=== PATIENT | female | born 1955 | race Caucasian/White ===

== ENCOUNTER 2019-11-01 13:59 | Inpatient (IN) | payer MEDICARE, OTHER ==
[~2019-11-01] VITALS: Ht 152.4 cm; Wt 78.1 kg
--- NOTE | 2019-11-01 14:29 | Diagnostic Imaging Report ---
EXAMINATION: Head CT HISTORY: Confusion, evaluate for acute stroke COMPARISON: None. TECHNIQUE: Multidetector axial images were obtained without contrast from the foramen magnum to the vertex . The images were reconstructed using brain and bone algorithms. Thin section brain images were reformatted into coronal and sagittal planes. Image quality: Motion/streaking artifact limits the evaluation of the skull base and posterior cranial fossa. Dose modulation, iterative reconstruction, and/or weight based adjustment of the mA/kV was utilized to reduce the radiation dose to as low as reasonably achievable. FINDINGS: Parenchyma: 1. Few scattered matter hypodensities, most likely nonspecific unremarkable ischemic changes, a small likely chronic lacunar infarct in left subinsular region. 2. No mass or hemorrhage. No CT evidence of acute territorial vascular insult. Extra-axial spaces:No abnormal density. No extra-axial fluid collections Brain volume: Normal for age. Ventricles: No hydrocephalus or displacement. Arteries: Prominent calcified atherosclerotic changes in the left greater than right internal carotid arteries Dural sinuses: No abnormal density. Extra-axial spaces: No abnormal density. Foramen magnum: No mass, Chiari malformation, or basilar invagination. Sella: No obvious mass. Paranasal/mastoid sinuses: Imaged portions unremarkable. Skull/Scalp: No lytic or blastic lesions. No fractures. Small extra-axial calcification in the left or frontal convexity may represent a bony exostoses versus a tiny calcified meningioma, no associated mass effect or abnormal density in the underlying parenchyma. IMPRESSION: 1. No intracranial hemorrhage or acute cortical infarct. 2. Small hypodensity in the left subinsular region may represent an age indeterminate ischemic lacunar infarct. 3. Mild white matter chronic microvascular changes. Signed by: Dr. Kellen Faria M.D. on 11/01/2019 2:26 PM
[2019-11-01] MEDS ORDERED: NICARDIPINE 20MG/200ML PREMIX 200 ML ONE (14:45)
--- NOTE | 2019-11-01 14:46 | Diagnostic Imaging Report ---
Chest, 1 view, 11/01/2019. History: , Confusion. Comparison: None available. Findings: The cardiomediastinal silhouette and pulmonary vasculature are within normal limits for a portable exam. There is no focal consolidation or pleural effusion. Linear opacities are present in the right lung base. There are no acute osseous or soft tissue abnormalities. Impression: Right basilar atelectasis. Signed by: Kee Gomez on 11/01/2019 2:42 PM
[2019-11-01 14:49] LABS: BASOPHILS # (AUTO) 0.1 (0.0-0.1); BASOPHILS % 0.9 % (0.0-1.0); EOSINOPHILS # (AUTO) 0.3 (0.0-0.4); EOSINOPHILS % 4.8 % (0.0-6.0); HEMATOCRIT 40.5 % (34.2-44.1); HEMOGLOBIN 12.6 g/dL (12.0-16.0); LYMPHOCYTES # (AUTO) 2.1 (1.0-3.2); LYMPHOCYTES % 39.2 % (18.0-39.1); MEAN CORPUSCULAR HEMOGLOBIN 25.1 pg (28-32); MEAN CORPUSCULAR HGB CONC 31.1 g/dL (31-35); MEAN CORPUSCULAR VOLUME 80.7 fL (81-99); MONOCYTES # (AUTO) 0.6 (0.2-0.8); MONOCYTES % 11.2 % (4.4-11.3); NEUTROPHILS # (AUTO) 2.4 (2.1-6.9); NEUTROPHILS % 43.7 % (38.7-80.0); PLATELET COUNT 133 x10e3/uL (140-360); RED BLOOD COUNT 5.02 x10e6/uL (3.6-5.1); RED CELL DISTRIBUTION WIDTH 14.7 % (11.7-14.4)
[2019-11-01 14:56] LABS: BILIRUBIN,URINE NEGATIVE (NEGATIVE); CLARITY,URINE CLEAR (CLEAR); COLOR,URINE YELLOW (YELLOW); KETONES,URINE NEGATIVE (NEGATIVE); LEUKOCYTE ESTERASE ,URINE NEGATIVE (NEGATIVE); NITRITE,URINE NEGATIVE (NEGATIVE); PROTEIN,URINE DIPSTICK NEGATIVE (NEGATIVE); URINE UROBILINOGEN 0.2 mg/dL (0.2 - 1)
[2019-11-01 14:58] LABS: INR 0.9; PARTIAL THROMBOPLASTIN TIME 26.8 seconds (23.8-35.5); PROTHROMBIN TIME 12.6 seconds (11.9-14.5)
[2019-11-01] MEDS ORDERED: NICARDIPINE 20MG/200ML PREMIX 200 ML IV PRN (15:00)
[2019-11-01 15:02] LABS: AMPHETAMINES SCREEN,URINE NEGATIVE (NEGATIVE); BENZODIAZEPINES SCREEN,URINE POSITIVE (NEGATIVE); PHENCYCLIDINE SCREEN,URINE NEGATIVE (NEGATIVE)
[2019-11-01 15:11] LABS: ALANINE AMINOTRANSFERASE 34 IU/L (0-55); ALBUMIN/GLOBULIN RATIO 1.3 (0.8-2.0); ALKALINE PHOSPHATASE 71 IU/L (40-150); ANION GAP 13.8 mmol/L (8-16); BLOOD UREA NITROGEN 15 mg/dL (7-26); BUN/CREATININE RATIO 20 (6-25); CALCIUM 9.2 mg/dL (8.4-10.2); CARBON DIOXIDE 28 mmol/L (22-29); CHLORIDE 102 mmol/L (98-107); CREATINE KINASE 120 IU/L (29-168); CREATININE, SERUM 0.75 mg/dL (0.57-1.11); EST GLOMERULAR FILTRATION RATE > 60 ML/MIN (60-); GLUCOSE 101 mg/dL (74-118); POTASSIUM 3.8 mmol/L (3.5-5.1); SODIUM 140 mmol/L (136-145)
[2019-11-01] MEDS ORDERED: SODIUM CHLORIDE 0.9% 1000ML 1,000 ML IV STA ×2 (15:11)
[2019-11-01] MEDS ORDERED: ASPIRIN 325 MG TAB PO ONE (15:15)
[2019-11-01] MEDS ORDERED: ONDANSETRON HCL INJ 2MG/ML 2ML 2 MG/ML VIAL IV PRN (15:15)
[2019-11-01] MEDS ORDERED: FOLIC ACID 5 MG/ML VIAL IV ONE (15:15)
[2019-11-01] MEDS ORDERED: DEXTROSE 50% SYRINGE 50 ML IV PRN (15:15)
[2019-11-01 15:18] LABS: BACTERIA,URINE FEW /HPF; EPITHELIAL CELLS,URINE FEW /LPF
--- OUTSIDE RECORDS SUMMARY | 2019-11-01 15:30 | XMS REPORT ---
Author Author [facility] Address Unknown Phone Unavailable Care Team Providers Care Radiology Aide Name Role Phone DORETHA HAILE Unavailable Unavailable Problems This patient has no known problems. Allergies, Adverse Reactions, Alerts This patient has no known allergies or adverse reactions. Medications This patient has no known medications. Encounters Start Date/Time End Date/Time Encounter Type Admission Type Attending Clinicians Care Facility Care Department Encounter ID 2019-08-04 19:32:00 2019-08-04 17:41:00 Inpatient E N MED 7502 Results Test Description Test Time Test Comments Text Results Atomic Results Result Comments CHEST SINGLE (PORTABLE) 2019-11-01 14:42:00 [place] [id number] Patient Name: LILIAN KNOWLES MR #: [id number] : 1955 Age/Sex: 64/F Req #: [id number] Adm Physician: Ordered by: KEE MARTINEZ CORRECTIONAL OFFICER CAPTAIN Report #: [id number] Location: ER Room/Bed: Procedure: [id number] DX/CHEST SINGLE (PORTABLE) Exam Date: 11/01/19 Exam Time: 1412 REPORT STATUS: Signed Chest, 1 view, 11/01/2019. History: , Confusion. Comparison: None available. Findings: The cardiomediastinal silhouette and pulmonary vasculature are within normal limits for a portable exam. There is no focal consolidation or pleural effusion. Linear opacities are present in the right lung base. There are no acute osseous or soft tissue abnormalities. Impression: Right basilar atelectasis. Signed by: Kee Gomez on 11/01/2019 2:42 PM Dictated By: KEE GOMEZ MD 41 Transcribed By: TOMASA on 11/01/191441 COPY TO: KEE MARTINEZ CORRECTIONAL OFFICER CAPTAIN CT BRAIN WO 2019-11-01 14:19:00 [place] [id number] Patient Name: LILIAN KNOWLES MR #: [id number] : 1955 Age/Sex: 64/F Req #: [id number] Adm Physician: Ordered by: DORETHA HAILE MD, MD Report #: [id number] Location: ER Room/Bed: Procedure: [id number] CT/CT BRAIN WO Exam Date: 11/01/19 Exam Time: 1411 REPORT STATUS: Signed EXAMINATION: Head CT HISTORY: Confusion, evaluate for acute stroke COMPARISON: None. TECHNIQUE: Multidetector axial images were obtained without contrast from the foramen magnum to the vertex . The images were reconstructed using brain and bone algorithms. Thin section brain images were reformatted into coronal and sagittal planes. Image quality: Motion/streaking artifact limits the evaluation of the skull base and posterior cranial fossa. Dose modulation, iterative reconstruction, and/or weight based adjustment of the mA/kV was utilized to reduce the radiation dose to as low as reasonably achievable. FINDINGS: Parenchyma: 1. Few scattered matter hypodensities, most likely nonspecific unremarkable ischemic changes, a small likely chronic lacunar infarct in left subinsular region. 2. No mass or hemorrhage. No CT evidence of acute territorial vascular insult. Extra-axial spaces:No abnormal density. No extra-axial fluid collections Brain volume: Normal for age. Ventricles: No hydrocephalus or displacement. Arteries: Prominent calcified atherosclerotic changes in the left greater than right internal carotid arteries Dural sinuses: No abnormal density. Extra-axial spaces: No abnormal density. Foramen magnum: No mass, Chiari malformation, or basilar invagination. Sella: No obvious mass. Paranasal/mastoid sinuses: Imaged portions unremarkable. Skull/Scalp: No lytic or blastic lesions. No fractures. Small extra-axial calcification in the left or frontal convexity may represent a bony exostoses versus a tiny calcified meningioma, no associated mass effect or abnormal density in the underlying parenchyma. IMPRESSION: 1. No intracranial hemorrhage or acute cortical infarct. 2. Small hypodensity in the left subinsular region may represent an age indeterminate ischemic lacunar infarct. 3. Mild white matter chronic microvascular changes. Signed by: Dr. Jane Faria M.D. on 11/01/2019 2:26 PM Dictated By: JANE FARIA MD 1426 Transcribed By: TOMASA on 11/01/19 1426 COPY TO: DORETHA HAILE Mammo Digital Mammography Screening 2019-02-13 12:22:25 CLINICAL INDICATION: Z12.31 Encntr screen mammogram for malignant neoplasm of breastTECHNIQUE: Digital acquisition of the breasts is performed on the Siemens Mammomat Inspiration mammography unit. Computer Assisted Detection (CAD) is then accomplished using [employer]. FINDINGS:COMPARISON STUDY: July 2015, May 2014, September 2012There are scattered fibroglandular tissues in both rafael sts.No dominant mass, skin thickening, architectural distortion or suspicious microcalcifications are noted. Benign-appearing calcifications are present.IMPRESSION:Benign bilateral mammogram. Negative.RECOMMENDATION: Routine annual screening mammography per ACR guidelines.Category: BIRADS 2 - Benign. For internal use only. N:12 MRI BRAIN WO 2019-02-13 11:10:54 CLINICAL INDICATION: G43.709 Chronic migraine w/o aura, not intractable, w/o stat migrMODALITY: ACR Accredited RunTitle Excite II 1.5 Livia MRITECHNIQUE: Multiplanar SE, FSE and inversion recovery pulse sequences of the brain were performed without contrast enhancement. Diffusion weighted imaging is utilized.IMPRESSION:1. No acute abnormality.2. Prior lacunar infarct and chronic microvascular ischemic change of the deep white matter as below.FINDINGS:COMPARISON: nonePrior lacunar infarct in the lateral left thalamus/posterior sub insular region is identified. There are scattered and confluent foci of T2/FLAIR signal change in the busby radiata and centrum semiovale which are most consistent with chronic microvascular ischemic change. Similar signal change is seen within the central sadaf.There are no acute infarcts, ischemic changes or hemorrhages. There is no acute restriction on diffusion sequences.There are no intra-axial or extra-axial masses. There is no hydrocephalus.Sella and parasellar structures are normal. Central skull base is intact. The craniocervical junction is intact. No mass or Chiari malformation. Bilateral internal auditory canals are normal and symmetric.Normal flow voids are seen intracranially in carotid and vertebrobasilar arteries. The calvarium is intact. Extracranial soft tissues are unremarkable.
[2019-11-01 15:41] LABS: MAGNESIUM 1.7 MG/DL (1.3-2.1)
[2019-11-01 16:01] LABS: THYROID STIMULATING HORMONE 1.024 uIU/mL (0.350-4.940)
[2019-11-01] MEDS ORDERED: NIFEDIPINE 10 MG CAP PO ONE ×2 (16:12→21:00)
[2019-11-01] MEDS: FAMOTIDINE 20 MG/2 ML VIAL IV SCH (17:04)
[2019-11-01] MEDS: INSULIN REGULAR, HUMAN 100 UNIT/1 ML 3ML VIAL SQ SCH ×2 (17:44→21:00)
[2019-11-01] MEDS: METOPROLOL TARTRATE 25 MG TAB PO SCH (17:56)
[2019-11-01] MEDS ORDERED: ONDANSETRON HCL INJ 2MG/ML 2ML 2 MG/ML VIAL IV ONE (18:15)
[2019-11-01] MEDS ORDERED: MORPHINE SULFATE INJ 4 MG/ML INJ 1ML IV ONE (18:15)
--- NOTE | 2019-11-01 18:16 | Diagnostic Imaging Report ---
MRI BRAIN WO HISTORY: Confusion, memory loss, headache behind left eye, nausea COMPARISON: Head CT 11/01/2019 TECHNIQUE: Axial T2, multiplanar 3-D T1, axial T2/FLAIR, axial gradient echo (or susceptibility weighted), and axial diffusion weighted MR images of the brain were obtained without contrast. DISCUSSION: Scalp/bone marrow: Unremarkable. Brain sulci: Appropriate for patient's age. Ventricles: Normal in size and configuration. No hydrocephalus. Extra-axial spaces: No masses or fluid collections. Parenchyma: Scattered T2/FLAIR hyperintense foci throughout the supratentorial white matter and sadaf are likely chronic microvascular ischemic changes. There is an old small lacunar infarct in the posterior left subinsular region. Otherwise, no mass, acute hemorrhage, or acute vascular insults. Vessels: Normal flow voids in major arteries and veins. Sellar/Suprasellar region: No abnormalities. Craniocervical junction: No abnormalities. Incidental findings: None. IMPRESSION: 1. No acute intracranial abnormalities. 2. Mild supratentorial/pontine chronic microvascular ischemic change. 3. Old small left posterior subinsular lacunar infarct. Signed by: Dr. Fam Canela M.D. on 11/01/2019 6:13 PM
[2019-11-01] MEDS: FOLIC ACID MDV 1 MG in SODIUM CHLORIDE 0.9% 50ML 50 ML IV SCH (20:46)
--- NOTE | 2019-11-01 20:56 | NUR ---
CARDENE DRIP TURNED OFF, WILL START PO CARDENE
[2019-11-01] MEDS: AMLODIPINE BESYLATE 10 MG TAB PO SCH (21:00)
[2019-11-01] MEDS: LISINOPRIL 20 MG TAB PO SCH (21:01)
--- NOTE | 2019-11-01 21:01 | NUR ---
ALL HYPERTENSIVE MEDICATIONS CLARIFIED WITH DR BHATT
[2019-11-01] MEDS ORDERED: THIAMINE HCL INJ 100 MG/ML 2ML VIAL IV ONE (22:45)
[2019-11-01 23:05] VITALS: BP 138/56
[2019-11-01 23:15] VITALS: BP 129/61
[2019-11-01 23:30] VITALS: BP 131/59
[2019-11-01 23:45] VITALS: BP 124/63
[2019-11-02] VITALS (39 sets, daily range): BP systolic 96–146; BP diastolic 49–85
[2019-11-02] MEDS ORDERED: METOPROLOL SUCC25 MG PO (00:14)
[2019-11-02] MEDS ORDERED: AMLODIPINE BESY10 MG PO (00:14)
[2019-11-02] MEDS ORDERED: ATORVASTATIN CA10 MG PO (00:14)
[2019-11-02] MEDS ORDERED: FERROUS SULFAT325 MG PO (00:14)
[2019-11-02] MEDS ORDERED: XANAX0.5 MG PO (00:14)
[2019-11-02] MEDS ORDERED: ASPIR 8181 MG PO (00:14)
[2019-11-02] MEDS ORDERED: LEXAPRO10 MG PO (00:14)
[2019-11-02] MEDS ORDERED: CALCIUM 500+D1 EACH PO (00:14)
[2019-11-02] MEDS ORDERED: METFORMIN HCL500 MG PO (00:14)
[2019-11-02] MEDS ORDERED: LISINOPRIL10 MG PO (00:14)
[2019-11-02] MEDS ORDERED: OMEPRAZOLE40 MG PO (00:14)
[2019-11-02] MEDS ORDERED: CALCIUM ACETAT667 M1 PO (00:14)
[2019-11-02] MEDS ORDERED: SODIUM CHLORIDE 0.9% 1000ML 1,000 ML ONE (00:56)
[2019-11-02] MEDS: SIMVASTATIN 40 MG TAB PO SCH ×2 (00:59→21:01)
[2019-11-02] MEDS: FAMOTIDINE 20 MG/2 ML VIAL IV SCH (03:00)
[2019-11-02] MEDS: METOPROLOL TARTRATE 25 MG TAB PO SCH (03:15)
--- NOTE | 2019-11-02 03:18 | Consultation ---
DATE OF CONSULTATION: Pulmonary Critical Care Consultation CHIEF COMPLAINT: Headache, confusion, and elevated blood pressure. HISTORY OF PRESENT ILLNESS: The patient is a 64-year-old woman. She has a history of hypertension as well as type 2 diabetes and coronary artery disease. She had a stent placed about a year and half ago. She came to the emergency department with confusion and severe headache. She was found to have extreme hypertension of 212/75. She was started on nicardipine drip and her blood pressure returned into the normal range. Her headache and confusion subsequently improved. PAST MEDICAL HISTORY: 1. History of a cerebrovascular accident in 2016. 2. Type 2 diabetes. 3. Hypertension. 4. Coronary artery disease. 5. Asthma requiring a maintenance inhaler and a rescue inhaler. PAST SURGICAL HISTORY: 1. Status post gastric bypass surgery 20 years ago. 2. Status post cardiac angioplasty and stent. SOCIAL HISTORY: The patient is not an active smoker or drinker. ALLERGIES: THE PATIENT IS ALLERGIC TO IODINE. FAMILY HISTORY: Family history is noncontributory. REVIEW OF SYSTEMS: The patient did have a headache. She had some confusion. There was no fever. She had no neck pain. She had no chest pain. She had no difficulty breathing. She had no abdominal pain. She had no nausea or vomiting. She did not have any leg swelling. She had no focal neurological complaints. PHYSICAL EXAMINATION: VITAL SIGNS: The blood pressure is now 138/56 and the pulse is 75. The respiratory rate is normal. HEENT: Shows no facial swelling or erythema. CARDIAC: Reveals a regular rate and rhythm with normal S1 and S2. LUNGS: Auscultation of lungs reveals clear breath sounds bilaterally. There is no wheezing. ABDOMEN: Soft, nontender. There is no rebound or guarding. EXTREMITIES: Show no leg edema or calf tenderness. There is no cyanosis or clubbing. SKIN: Shows no rashes. NEUROLOGICAL: Shows no focal abnormalities. RADIOGRAPHIC DATA: MRI of the brain shows no acute intracranial abnormalities. There is an old small posterior subinsular left lacunar infarct. Chest x-ray shows some right basilar atelectasis. LABORATORY DATA: Blood counts are significant for a low platelet count of 133. Hemoglobin is 12.6 with an MCV of 80. BUN to creatinine ratio is normal. Electrolytes are within normal limits and the liver function tests are normal. IMPRESSION: 1. Accelerated hypertension and hypertensive encephalopathy. 2. Metabolic encephalopathy. 3. Gastric ulcer near the anastomosis site with gastric bypass surgery. 4. Old lacunar infarct. 5. Type 2 diabetes. 6. Asthma. PLAN: 1. Continue to monitor and control blood pressure. 2. Thiamine, folic acid, and vitamin B12 as needed. These vitamins could be deficient after the gastric bypass surgery. 3. Continue home diabetic medications and monitor blood sugars. MD NORMA Stover/WILMA /[id number]
--- NOTE | 2019-11-02 04:23 | History and Physical ---
PRIMARY CARE PHYSICIAN: Dr. Carole Flowers. SUPERVISOR COOK HOUSE: Dr. Maurer. CHIEF COMPLAINT: Altered mental status and headache. HISTORY OF PRESENT ILLNESS: This is a 64-year-old female with past medical history of hypertension, diabetes, high cholesterol, CAD and CVA, presented to the ER with complaints of altered mental status that started about 1:00 p.m. Prior to that, family reports that she was alert, awake, oriented, and was not complaining of any symptoms of chest pain or headache. She reported that she started having headache and did not know how she, where she was and how she got there. So they brought her in for further evaluation. Upon assessment, she still confused and family members are at bedside reorienting her, but continues to have short-term memory. PAST MEDICAL HISTORY: 1. Hypertension. 2. Diabetes. 3. CAD, status post stents. 4. High cholesterol. 5. CVA. PAST SURGICAL HISTORY: She had cholecystectomy, cardiac stents, and gastric bypass. FAMILY MEDICAL HISTORY: She does not remember. SOCIAL HISTORY: She denies any tobacco, alcohol, or drug use. ALLERGIES: NO KNOWN ALLERGIES. REVIEW OF SYSTEMS: General; unable to obtain any information due to her disorientation. She does however complain of left-sided chest pain and left eye pain, rating the pain of 5 to 6/10. PHYSICAL EXAMINATION: VITAL SIGNS: Temperature is 98.3, pulse is 54, respirations 20, blood pressure 212/75, pulse ox is 99% on room air. GENERAL: Alert and awake. HEENT: Normocephalic, atraumatic. NECK: Supple. LUNGS: Clear to auscultation. CARDIOVASCULAR: Regular rate. GI: No abdominal pain. Soft and nontender. NEUROLOGIC: Alert and awake, oriented to self only and is forgetful. MUSCULOSKELETAL: Moves all extremities. SKIN: Dry. PSYCH: Calm. LABORATORY DATA: WBC is 5.43, hemoglobin is 12.6, hematocrit is 40.5, and platelet is 133. Sodium is 140, potassium is 3.8, creatinine is 0.75, AST is 35, ALT is 34. BNP is 199. TSH is 1.024. PT is 12.6, INR 0.9, APTT 26.8. Urine is negative, clear. Toxicology, positive for opiates and benzo. IMAGING: CT brain was negative for intracranial hemorrhage or acute cortical infarct. There is small hypodense in the left insular region may represent an age due to indeterminate ischemic lacunar infarct. Chest x-ray, right basilar atelectasis. IMPRESSION AND PLAN: 1. Altered mental status with left-sided headache and hypertension. Likely hypertensive encephalopathy. The patient does not remember if she took her blood pressure medication this morning. CT brain was noted. MRI is pending. Patient Neurology has been consulted. 2. Accelerated hypertension. BP was 212/75 upon arrival. She was started on Cardene drip and currently 135/75. Continues to complain of headache. 3. Diabetes. We will continue sliding scale insulin. 4. Coronary artery disease with history of stents, home medication does not show Plavix, but is on aspirin and statin. She reported recent GI bleed about two months ago. 5. History of high cholesterol, continue statin. 6. History of cerebrovascular accident, ischemic. We will continue with aspirin and statin. Further recommendation per Neurology. 7. History of depression and anxiety. We will resume Lexapro once cleared. 8. Deep vein thrombosis prophylaxis. We will hold anticoagulation until seen by Neurology. Dictated by SHERYL Parks Reyna Mcclellan MD MY/MODL /[id number] Seen and examined on 11/01/19, updated family at the bedside. Agree with the findings and plan as documented by SHERYL Carpenter. CINDYD
[2019-11-02 05:03] LABS: BASOPHILS % 0.3 % (0.0-1.0); EOSINOPHILS # (AUTO) 0.2 (0.0-0.4); EOSINOPHILS % 2.5 % (0.0-6.0); HEMOGLOBIN 11.6 g/dL (12.0-16.0); LYMPHOCYTES # (AUTO) 1.9 (1.0-3.2); LYMPHOCYTES % 30.8 % (18.0-39.1); MEAN CORPUSCULAR HEMOGLOBIN 24.7 pg (28-32); MEAN CORPUSCULAR HGB CONC 30.5 g/dL (31-35); MEAN CORPUSCULAR VOLUME 80.9 fL (81-99); MONOCYTES # (AUTO) 0.6 (0.2-0.8); MONOCYTES % 9.4 % (4.4-11.3); NEUTROPHILS # (AUTO) 3.6 (2.1-6.9); NEUTROPHILS % 56.8 % (38.7-80.0); PLATELET COUNT 166 x10e3/uL (140-360); RED CELL DISTRIBUTION WIDTH 14.6 % (11.7-14.4)
[2019-11-02 05:25] LABS: CREATINE KINASE MB 3.7 ng/mL (0-5.0)
[2019-11-02 05:44] LABS: ALANINE AMINOTRANSFERASE 29 IU/L (0-55); ALBUMIN 3.4 g/dL (3.5-5.0); ALBUMIN/GLOBULIN RATIO 1.1 (0.8-2.0); ALKALINE PHOSPHATASE 66 IU/L (40-150); ANION GAP 13.7 mmol/L (8-16); BLOOD UREA NITROGEN 19 mg/dL (7-26); BUN/CREATININE RATIO 23 (6-25); CARBON DIOXIDE 26 mmol/L (22-29); CHLORIDE 101 mmol/L (98-107); CHOL/HDL RATIO 2.3 (3.0-3.6); CHOLESTEROL 190 MD/DL (0-199); CREATININE, SERUM 0.84 mg/dL (0.57-1.11); EST GLOMERULAR FILTRATION RATE > 60 ML/MIN (60-); GLUCOSE 194 mg/dL (74-118); HDL CHOLESTEROL 81 MG/DL (40-60); LDL CHOLESTEROL 95 MG/DL (60-130); MAGNESIUM 1.7 MG/DL (1.3-2.1); PHOSPHORUS 3.3 MG/DL (2.3-4.7); POTASSIUM 3.7 mmol/L (3.5-5.1); SODIUM 137 mmol/L (136-145); TRIGLYCERIDES 71 MG/DL (0-149)
[2019-11-02 06:18] LABS: FERRITIN 29.7 ng/mL (4.63-204.00)
[2019-11-02] MEDS: INSULIN REGULAR, HUMAN 100 UNIT/1 ML 3ML VIAL SQ SCH ×4 (07:30→21:00)
[2019-11-02] MEDS: AMLODIPINE BESYLATE 10 MG TAB PO SCH (08:03)
[2019-11-02] MEDS ORDERED: ASPIRIN 325 MG TAB EC PO SCH (09:00)
[2019-11-02] MEDS ORDERED: FOLIC ACID MDV 1 MG in SODIUM CHLORIDE 0.9% 50ML 50 ML IV SCH (09:00)
[2019-11-02] MEDS: FOLIC ACID MDV 1 MG in SODIUM CHLORIDE 0.9% 50ML 50 ML IV SCH (09:13)
[2019-11-02] MEDS: LISINOPRIL 20 MG TAB PO SCH ×3 (10:00→21:01)
[2019-11-02] MEDS ORDERED: ACETAMINOPHEN 325 MG TAB PO PRN (13:45)
[2019-11-02] MEDS ORDERED: ALPRAZOLAM 0.25 MG TAB PO PRN (13:45)
[2019-11-02 14:42] LABS: CREATINE KINASE 104 IU/L (29-168)
--- NOTE | 2019-11-02 17:45 | NUR ---
Patient alert and oriented upon assessment. Dr. Mccelllan gave orders for medical surgical floor with telemetry. Dr. Gomez contacted to make sure MD aware of consult, MD states she is aware and will come this evening. Per Dr. Leatha Doshi patient requesting to be discharged. Dr. Doshi contact Dr. Mcclellan to inform him of situation. Upon RN's assessment patient wants to be discharged tonight but would like to be evaluated by Dr. Gomez before discharge. Dr. Mcclellan informed of this.
--- NOTE | 2019-11-02 17:51 | Progress Note ---
DATE: SUBJECTIVE: The patient feels better. She has no headache. She is not confused. She is eager to go home. PHYSICAL EXAMINATION: VITAL SIGNS: The patient is afebrile. The blood pressure is 119/50. Saturation is 97% on room air. HEENT: Shows no facial swelling or erythema. CARDIAC: Reveals regular rate and rhythm with normal S1, S2. There are no murmurs or rubs. LUNGS: Auscultation of lungs reveals clear breath sounds bilaterally. There is no wheezing. ABDOMEN: Soft, nontender. There is no rebound or guarding. EXTREMITIES: Show no leg edema or calf tenderness. There is no cyanosis or clubbing. NEUROLOGICAL: Shows no focal abnormalities. IMPRESSION: 1. Accelerated hypertension. 2. Metabolic encephalopathy. 3. Gastric ulcer. 4. Old lacunar infarct. 5. Type 2 diabetes. 6. Asthma. PLAN: 1. The patient should be ready for discharge. 2. Continue to monitor blood pressures. Continue prior home regimen. 3. Continue to monitor blood sugars. Pascual Doshi MD [facility]/MODL /[id number]
--- NOTE | 2019-11-02 19:25 | NUR ---
Dr. Gomez at bedside for neuro consult on patient.
--- NOTE | 2019-11-02 20:10 | NUR ---
Patient ok to d/c from Neuro standpoint per Dr. Gomez. D/C orders already entered. Patient willing and ok to discharge from her standpoint, no objections at this time. VSS. RN to complete d/c, patient's niece at bedside to drive patient home.
--- NOTE | 2019-11-02 21:02 | NUR ---
Patient left the unit via wheelchair with niece, transported by [facility] [place]. Last VSS, no s/s distress or complaints at this time. Patient's room checked prior to d/c for all belongings.
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
--- NOTE | 2019-11-03 23:40 | Discharge Summary ---
PRIMARY CARE DOCTOR: Carole Flowers MD CONSULTANTS: Dr. Gomez with Neurology, Dr. Doshi with Intensive Care. CHIEF COMPLAINT: Altered mental status and left-sided headache. FINAL DIAGNOSES: 1. Altered mental status due to hypertensive encephalopathy. 2. Accelerated hypertension. 3. Diabetes. 4. Coronary artery disease. 5. History of . 6. History of cerebrovascular accident. 7. History of depression and anxiety. HOSPITAL COURSE: This is a 64-year-old female, who presented to the ER with complaints of altered mental status and left-sided headache that started around [address] of brain and MRI were unremarkable for acute stroke. She denied of any chest pain, cardiac enzymes were negative. Neurology was consulted. She was placed on a Cardene drip and was monitored in the ICU. Her altered mental status resolved and remained stable. Echocardiogram noted with normal EF. We will discharge home to follow up with her PCP and hydrologic engineer for evaluation of her blood pressure medications. PROCEDURES: None. DISCHARGE MEDICATIONS: See med list. FOLLOWUP: Follow up with PCP and hydrologic engineer, Dr. Maurer in 1 to 2 weeks. TIME SPENT: 32 minutes. Dictated by SHERYL Parks Reyna Mcclellan MD MY/MODL /[id number] Seen and examined on 11/02/19. Agree with the findings and plan as documented by SHERYL Carpenter. MTDD
== END 2019-11-02 21:02 | disposition home or self-care (01) | DRG 77 ==
LOC: ER 13:59 → ERHOLD 15:27 → ICU 22:55
PROVIDERS: ADMIT Internal Medicine; ATTEND Internal Medicine
DX: I67.4 Hypertensive encephalopathy (principal); G93.41 Metabolic encephalopathy; I10 Essential (primary) hypertension; E11.9 Type 2 diabetes mellitus without complications; I25.10 Atherosclerotic heart disease of native coronary artery without angina pectoris; Z95.5 Presence of coronary angioplasty implant and graft; Z86.73 Personal history of transient ischemic attack (TIA), and cerebral infarction without residual deficits; E78.00 Pure hypercholesterolemia, unspecified; Z98.84 Bariatric surgery status; F32.9 Major depressive disorder, single episode, unspecified; F41.9 Anxiety disorder, unspecified; J45.909 Unspecified asthma, uncomplicated; K25.9 Gastric ulcer, unspecified as acute or chronic, without hemorrhage or perforation
CPT/HCPCS: 36415; 70450; 70551; 71045; 80053; 80061; 80307; 81001; 82550; 82553; 82728; 82948; 83540; 83735; 83880; 84100; 84443; 84466; 84484; 85025; 85610; 85651; 85730; 86140; 87086; 93005; 93306; 93880; 99284; J2270; J2405; J3411; J7030